=== PATIENT | female | born 2000 | race Caucasian/White ===

== ENCOUNTER 2023-08-04 09:00 | Inpatient (IN) | payer OTHER ==
[2023-08-04] MEDS ORDERED: OXYTOCIN 30 UNITS in 0.9% NS 30 UNIT/500 ML INFUS.BAG IVPB ONE (10:04)
[2023-08-04] MEDS: ELECTROLYTE-148 SOLN 1,000 ML IV SCH (10:21)
[2023-08-04] MEDS: OXYTOCIN 30 UNITS in 0.9% NS 30 UNIT/500 ML INFUS.BAG IVPB SCH (10:21)
[2023-08-04 10:39] LABS: BASO % 0.4 % (0-2.0); EOS % 3.6 % (0-4.5); HEMOGLOBIN 10.9 GM/dL (10.7-15.3); LYMPH % 23.8 % (8-40); MCH 29.7 pg (25.7-33.7); MCHC 33.9 g/dl (32.0-36.0); MEAN CELL VOLUME 87.4 fl (80-96); MEAN PLT VOLUME 8.8 fl (7.5-11.1); MONO % 6.5 % (3.8-10.2); NEUT % 65.7 % (42.8-82.8); PLATELET COUNT 234 10^3/uL (134-434); RBC 3.66 M/mm3 (3.60-5.2); RDW 13.2 % (11.6-15.6); WHITE BLOOD COUNT 10.1 K/mm3 (4.0-10.0)
[2023-08-04 10:41] LABS: INR 0.96 (0.83-1.09); PROTHROMBIN TIME (PATIENT) 11.1 SEC (9.7-13.0)
[2023-08-04 10:44] LABS: ACTIVATED PTT 25.8 SECONDS (25.2-36.5)
[2023-08-04 11:03] LABS: POTASSIUM 3.3 mmol/L (3.5-5.1)
[2023-08-04 11:04] LABS: BLOOD UREA NITROGEN 9.5 mg/dL (7-18)
[2023-08-04 11:08] LABS: CREATININE 0.6 mg/dL (0.55-1.3)
[2023-08-04 12:05] LABS: HIV INTERPRETATION NEGATIVE (NEGATIVE)
[2023-08-04 12:54] VITALS: BMI 34.2
[2023-08-04] MEDS ORDERED: FENTANYL/BUPIVACAINE/NS/PF - PCEA - 50 ML DISP.SYRIN EP ONE (21:29)
[2023-08-04] MEDS: FENTANYL/BUPIVACAINE/NS/PF - PCEA - 50 ML DISP.SYRIN EP SCH (21:50)
[2023-08-04] MEDS ORDERED: NALOXONE HCL 0.4 MG/ML VIAL IVPUSH PRN (22:57)
[2023-08-05] MEDS ORDERED: FENTANYL/BUPIVACAINE/NS/PF - PCEA - 50 ML DISP.SYRIN EP ONE (02:39)
[2023-08-05] MEDS ORDERED: FENTANYL CITRATE/PF 50 MCG/ML VIAL ONE (03:57)
[2023-08-05] MEDS ORDERED: ONDANSETRON 4 MG/2 ML VIAL IVPB PRN (04:57)
[2023-08-05] MEDS: OXYTOCIN 20 UNITS in 0.9% NS 20 UNIT/1,000 ML INFUS.BAG IV SCH (05:45)
[2023-08-05 08:08] VITALS: RESP 18
[2023-08-05] MEDS: IBUPROFEN 800 MG/8 ML IJ IVPB SCH (08:38)
[2023-08-05] MEDS: ACETAMINOPHEN 1000 MG/100 ML BAG IVPB SCH (08:38)
[2023-08-05] MEDS: SENNOSIDES/DOCUSATE COMBO (SENNA PLUS) TABLET (UD) PO SCH (22:23)
[2023-08-05] MEDS: SIMETHICONE 80 MG TAB.CHEW (FP) PO PRN (23:51)
[2023-08-06] MEDS ORDERED: BISACODYL 10 MG SUPP.RECT RC PRN (04:58)
[2023-08-06] MEDS: ACETAMINOPHEN 325 MG TABLET (FP) PO PRN (06:01)
[2023-08-06 06:39] LABS: BASO % 0.3 % (0-2.0); EOS % 2.2 % (0-4.5); HEMATOCRIT 28.5 % (32.4-45.2); HEMOGLOBIN 9.4 GM/dL (10.7-15.3); LYMPH % 11.9 % (8-40); MCH 29.2 pg (25.7-33.7); MCHC 32.9 g/dl (32.0-36.0); MEAN CELL VOLUME 88.7 fl (80-96); MEAN PLT VOLUME 8.4 fl (7.5-11.1); MONO % 6.4 % (3.8-10.2); NEUT % 79.2 % (42.8-82.8); PLATELET COUNT 197 10^3/uL (134-434); RBC 3.21 M/mm3 (3.60-5.2); RDW 13.4 % (11.6-15.6); WHITE BLOOD COUNT 14.3 K/mm3 (4.0-10.0)
[2023-08-06] MEDS: IBUPROFEN 600 MG TABLET (FP) PO PRN (08:22)
[2023-08-07 10:43] VITALS: BP 103/51; PULSE 64; TEMP 98
[2023-08-07] MEDS: oxyCODONE HCL 5 MG TABLET PO PRN (18:30)
== END 2023-08-07 19:30 | disposition home or self-care (01) | DRG 540 ==
LOC: JLDR 09:00 → J3W 08-05 07:46
PROVIDERS: ADMIT Specialist; ATTEND Specialist
PROC: 10D00Z1 Extraction of Products of Conception, Low, Open Approach (ICD-10-PCS; principal; 2023-08-05)
DX: O75.89 Other specified complications of labor and delivery (principal); O61.8 Other failed induction of labor; Z3A.39 39 weeks gestation of pregnancy; Z37.0 Single live birth
CPT/HCPCS: 36415; 80048; 85025; 85610; 85730; 86780; 86850; 86900; 86901; 87389; 88307-TC; J0131